=== PATIENT | male | born 1990 | race Caucasian/White ===

== ENCOUNTER 2017-06-01 18:34 | Emergency (ER) | payer MEDICAID ==
[~2017-06-01] VITALS: Ht 175.3 cm; Wt 63.6 kg
[~2017-06-01 18:34] MED LIST: CEPH-571 PO; HYDR-569 PO; INSU100V36 SQ; LANTUS SQ; ONDA4TAB12 PO
[2017-06-01 20:12] LABS: BASOPHILS % (AUTO) 0.1 % (0-1); EOSINOPHILS # (AUTO) 2.2 X10'3 (0-0.9); EOSINOPHILS % (AUTO) 9.8 % (0-6); HEMATOCRIT 38.2 % (42.0-52.0); HEMOGLOBIN 13.3 g/dl (14.0-17.9); LYMPHOCYTES # (AUTO) 2.1 X10'3 (1.1-4.8); LYMPHOCYTES % (AUTO) 9.6 % (21-51); MEAN CORPUSCULAR HEMOGLOBIN 31.3 PG (27.0-31.0); MEAN CORPUSCULAR HGB CONC 34.7 % (33.0-36.5); MEAN CORPUSCULAR VOLUME 90.1 FL (78-98); MONOCYTES # (AUTO) 0.7 X10'3 (0-0.9); NEUTROPHILS # (AUTO) 17.3 X10'3 (1.8-7.7); NEUTROPHILS % (AUTO) 77.5 % (42-75); PLATELET COUNT 320 X10'3 (140-440); RED BLOOD COUNT 4.25 X10'6 (4.70-6.10); RED CELL DISTRIBUTION WIDTH 12.8 % (11.5-14.5); WHITE BLOOD COUNT 22.3 X10'3 (4.5-11.0)
[2017-06-01 20:22] LABS: PARTIAL THROMBOPLASTIN TIME 29 SECONDS (22-32); PROTHROMBIN TIME 10.5 SECONDS (9.0-12.0)
[2017-06-01 20:27] LABS: ALANINE AMINOTRANSFERASE 25 U/L (12-78); ALBUMIN 2.8 G/DL (3.4-5.0); ALBUMIN/GLOBULIN RATIO 0.7 (1.1-1.5); ALKALINE PHOSPHATASE 142 IU/L (46-116); ANION GAP 4 (8-16); ASPARTATE AMINO TRANSFERASE 13 U/L (10-37); BILIRUBIN,TOTAL 0.3 MG/DL (0.1-1.0); BLOOD UREA NITROGEN 16 MG/DL (7-18); BUN/CREATININE RATIO 22.5 (5.4-32.0); CALCIUM 8.8 MG/DL (8.5-10.1); CHLORIDE 100 MMOL/L (99-107); CREATININE 0.71 MG/DL (0.60-1.10); POTASSIUM 4.4 MMOL/L (3.5-5.1); SODIUM 137 MMOL/L (135-145); TOTAL CARBON DIOXIDE 32.8 MMOL/L (24-32); eGFR > 90 ML/MIN
[2017-06-01 20:34] LABS: GLUCOSE 496 MG/DL (70-104)
[2017-06-01] MEDS ORDERED: normal saline 1000ML IV soln IVB ONE (20:45)
[2017-06-01] MEDS ORDERED: insulin regular, human 10 units/0.1 ml syringe SQ ONE (20:45)
[2017-06-01 20:51] LABS: CLARITY,URINE CLEAR (Clear); COLOR,URINE YELLOW (Yellow); GLUCOSE, URINE >=1000 mg/dl (Neg); KETONES,URINE NEGATIVE (Neg); LEUKOCYTE ESTERASE ,URINE NEGATIVE (Neg); NITRITES, URINE NEGATIVE (Neg); OCCULT BLOOD,URINE SMALL (Neg); PH,URINE 6.5 (4.8-8.0); PROTEIN,URINE NEGATIVE (Neg); UROBILINOGEN,URINE 0.2 E.U/dL (0.2-1.0)
[2017-06-01 20:52] LABS: UA COLLECTION TYPE VOIDED; URINE AMPHETAMINE SCREEN POSITIVE (Neg); URINE BARBITUATE SCREEN NEGATIVE (Neg); URINE BENZODIAZEPINES SCREEN NEGATIVE (Neg); URINE CANNABINOID SCREEN POSITIVE (Neg); URINE COCAINE SCREEN NEGATIVE (Neg); URINE METHADONE SCREEN NEGATIVE (Neg); URINE OPIATE SCREEN POSITIVE (Neg); URINE PHENCYCLIDINE SCREEN NEGATIVE (Neg)
[2017-06-01 20:53] LABS: WBC,URINE NONE SEEN /HPF (0-4)
[2017-06-01 20:54] LABS: BACTERIA,URINE 1+ /HPF (Neg); CAL OXALATE CRYSTALS FEW /HPF (NEGATIVE); SQUAMOUS EPITHELIAL CELL,UR FEW /LPF (FEW)
[2017-06-01 22:22] VITALS: BP 134/88
== END 2017-06-01 22:24 | disposition left against medical advice (07) ==
LOC: ER 18:34
DX: E11.65 Type 2 diabetes mellitus with hyperglycemia (principal); F11.10 Opioid abuse, uncomplicated; D72.829 Elevated white blood cell count, unspecified; R22.42 Localized swelling, mass and lump, left lower limb; M79.662 Pain in left lower leg; R00.0 Tachycardia, unspecified; E03.9 Hypothyroidism, unspecified; F15.10 Other stimulant abuse, uncomplicated; F17.200 Nicotine dependence, unspecified, uncomplicated; F14.10 Cocaine abuse, uncomplicated; Z88.2 Allergy status to sulfonamides; Z79.4 Long term (current) use of insulin; Z79.899 Other long term (current) drug therapy
CPT/HCPCS: 36415; 80053; 80305; 81001; 83605; 85025; 85610; 85730; 87040; 93971; 96360; 96372; 99285; J1815; J7030

== ENCOUNTER 2018-04-26 14:53 | Emergency (ER) | payer MEDICAID ==
[~2018-04-26] VITALS: Ht 175.3 cm; Wt 72.7 kg
[~2018-04-26 14:53] MED LIST changes: +HYDR-4383 PO; -HYDR-569 PO
--- NOTE | 2018-04-26 15:13 | NUR ---
PT STATES DM 1. BS TOO HIGH TOO READ
--- NOTE | 2018-04-26 15:16 | NUR ---
AWARE OF BS, PT PLACED IN ROOM
[2018-04-26 15:32] LABS: BASOPHILS # (AUTO) 0.1 X10'3 (0-0.2); EOSINOPHILS # (AUTO) 0.3 X10'3 (0-0.9); EOSINOPHILS % (AUTO) 3.3 % (0-6); HEMATOCRIT 40.6 % (42.0-52.0); HEMOGLOBIN 13.4 g/dl (14.0-17.9); LYMPHOCYTES # (AUTO) 2.4 X10'3 (1.1-4.8); LYMPHOCYTES % (AUTO) 29.3 % (21-51); MEAN CORPUSCULAR HEMOGLOBIN 31.3 PG (27.0-31.0); MEAN PLATELET VOLUME 10.3 FL (7.4-10.4); MONOCYTES # (AUTO) 0.7 X10'3 (0-0.9); MONOCYTES % (AUTO) 8.3 % (2-12); NEUTROPHILS # (AUTO) 4.7 X10'3 (1.8-7.7); NEUTROPHILS % (AUTO) 58.1 % (42-75); PLATELET COUNT 287 X10'3 (140-440); RED BLOOD COUNT 4.28 X10'6 (4.70-6.10); RED CELL DISTRIBUTION WIDTH 13.5 % (11.5-14.5); WHITE BLOOD COUNT 8.2 X10'3 (4.5-11.0)
[2018-04-26] MEDS ORDERED: normal saline 1000ML IV soln IVB ONE ×3 (15:45→17:40)
[2018-04-26 15:48] LABS: ALANINE AMINOTRANSFERASE 16 U/L (12-78); ALBUMIN 3.2 G/DL (3.4-5.0); ALBUMIN/GLOBULIN RATIO 0.8 (1.1-1.5); ALKALINE PHOSPHATASE 145 IU/L (46-116); ANION GAP 7 (8-16); ASPARTATE AMINO TRANSFERASE 11 U/L (10-37); BILIRUBIN,TOTAL 0.3 MG/DL (0.1-1.0); BLOOD UREA NITROGEN 16 MG/DL (7-18); BUN/CREATININE RATIO 15.8 (5.4-32.0); CALCIUM 9.1 MG/DL (8.5-10.1); CHLORIDE 96 MMOL/L (99-107); CREATININE 1.01 MG/DL (0.60-1.10); POTASSIUM 4.7 MMOL/L (3.5-5.1); SODIUM 130 MMOL/L (135-145); TOTAL CARBON DIOXIDE 27.1 MMOL/L (24-32); TOTAL PROTEIN 7.4 G/DL (6.4-8.2); eGFR 88 ML/MIN
[2018-04-26 15:51] LABS: GLUCOSE 660 MG/DL (70-104)
[2018-04-26] MEDS ORDERED: insulin regular, human 10 units/0.1 ml syringe IV ONE (15:55)
[2018-04-26 17:10] LABS: CLARITY,URINE CLEAR (Clear); COLOR,URINE STRAW (Yellow); GLUCOSE, URINE >=1000 mg/dl (Neg); KETONES,URINE 15 mg/dl (Neg); LEUKOCYTE ESTERASE ,URINE NEGATIVE (Neg); NITRITES, URINE NEGATIVE (Neg); OCCULT BLOOD,URINE TRACE-INTACT (Neg); PROTEIN,URINE NEGATIVE (Neg); UROBILINOGEN,URINE 0.2 E.U/dL (0.2-1.0)
[2018-04-26 17:11] LABS: UA COLLECTION TYPE CLN CATCH MIDSTREAM
[2018-04-26 17:17] LABS: BACTERIA,URINE NONE SEEN /HPF (Neg); MUCUS STRANDS NONE SEEN /LPF (Neg); RBC,URINE 0-2 /HPF (0-2); SQUAMOUS EPITHELIAL CELL,UR FEW /LPF (FEW); TRANSITIONAL EPI CELLS,URINE FEW /HPF; WBC,URINE 0-4 /HPF (0-4)
[2018-04-26 18:31] VITALS: BP 125/82
--- NOTE | 2018-04-26 20:02 | NUR ---
PATIENT LEFT HIS PHONE IN ROOM AFTER DISCHARGE. CALL PLACED TO ALL NUMBERS ON FILE, BOTH NUMBERS NON-WORKING.
== END 2018-04-26 19:33 | disposition home or self-care (01) ==
LOC: ER 14:54
DX: M79.671 Pain in right foot (principal); E10.65 Type 1 diabetes mellitus with hyperglycemia; E03.9 Hypothyroidism, unspecified; F15.90 Other stimulant use, unspecified, uncomplicated; F11.90 Opioid use, unspecified, uncomplicated; F14.90 Cocaine use, unspecified, uncomplicated; Z88.2 Allergy status to sulfonamides; Z59.0 Homelessness
CPT/HCPCS: 36415; 73630; 80053; 81001; 82948; 84550; 85025; 85651; 96374; 99284; J1815; J7030; 96361

== ENCOUNTER 2019-03-05 13:14 | Inpatient (IN) | payer MEDICAID ==
[2019-03-05] VITALS (9 sets, daily range): BP systolic 104–137; BP diastolic 62–90
[~2019-03-05] VITALS: Ht 175.3 cm; Wt 70.0 kg
[~2019-03-05 13:14] MED LIST changes: +ARIP5TAB49 PO; +BUPR1FIL3 SL; -CEPH-571 PO; +ESCI10TA61 PO; +GABA-530 PO; -HYDR-4383 PO; -ONDA4TAB12 PO; +TRAZ-251
[2019-03-05] MEDS ORDERED: normal saline 1000ML IV soln IVB ONE ×2 (13:40)
--- NOTE | 2019-03-05 13:55 | NUR ---
La Addendum: 03/05/19 at 1402 by [email or web address] Lab called with critical WBC 35.0. Dr Ge aware.
[2019-03-05 13:56] LABS: BASOPHILS # (AUTO) 0.1 X10'3 (0-0.2); BASOPHILS % (AUTO) 0.3 % (0-1); EOSINOPHILS % (AUTO) 0.1 % (0-6); HEMATOCRIT 42.8 % (42.0-52.0); HEMOGLOBIN 13.4 g/dl (14.0-17.9); LYMPHOCYTES # (AUTO) 1.7 X10'3 (1.1-4.8); LYMPHOCYTES % (AUTO) 4.8 % (21-51); MEAN CORPUSCULAR HEMOGLOBIN 31.2 PG (27.0-31.0); MEAN CORPUSCULAR HGB CONC 31.3 g/dL (33.0-36.5); MEAN CORPUSCULAR VOLUME 99.4 FL (78-98); MEAN PLATELET VOLUME 9.8 FL (7.4-10.4); MONOCYTES # (AUTO) 4.6 X10'3 (0-0.9); MONOCYTES % (AUTO) 13.1 % (2-12); NEUTROPHILS # (AUTO) 28.7 X10'3 (1.8-7.7); NEUTROPHILS % (AUTO) 81.7 % (42-75); PLATELET COUNT 432 X10'3 (140-440); RED CELL DISTRIBUTION WIDTH 13.6 % (11.5-14.5)
--- NOTE | 2019-03-05 14:00 | NUR ---
DR. DIAZ AT BEDSIDE.
[2019-03-05] MEDS ORDERED: vancomycin/NS 1 GM ADD-VANTAGE 250 ML X 1 DOSE IV ONE (14:05)
[2019-03-05 14:21] LABS: PLATELET ESTIMATE NORMAL; POLYCHROMASIA FEW; TOTAL CELLS COUNTED 100
[2019-03-05 14:22] LABS: PARTIAL THROMBOPLASTIN TIME 37 SECONDS (22-32)
[2019-03-05 14:26] LABS: ABG BASE EXCESS -25.8 mmol/L (-2.0-3.0); ABG HCO3 2.9 mmol/L (22.0-26.0); ABG OXYGEN SATURATION 97.8 % (95-98); ABG PCO2 (T) 11.1 mmHg (35.0-45.0); ABG PH (T) 7.033 (7.350-7.450); ABG PO2 (T) 141.4 mmHg (83-108); ALLEN'S TEST Positive; FCOHb 0.4 % (0.5-1.5); FMetHb 0.2 % (0.3-1.12); FO2Hb 97.2 % (94-100); TOTAL HEMOGLOBIN 12.6 G/dl (14.0-17.9)
[2019-03-05] MEDS: ketoconazole 2% cream 15gm TP SCH ×2 (14:30→19:39)
[2019-03-05 14:35] LABS: ALANINE AMINOTRANSFERASE 31 U/L (12-78); ALBUMIN/GLOBULIN RATIO 0.6 (1.1-1.5); ALKALINE PHOSPHATASE 170 IU/L (46-116); ASPARTATE AMINO TRANSFERASE 15 U/L (10-37); BILIRUBIN,TOTAL 0.5 MG/DL (0.1-1.0); BLOOD UREA NITROGEN 23 MG/DL (7-18); BUN/CREATININE RATIO 14.9 (5.4-32.0); CALCIUM 8.9 MG/DL (8.5-10.1); CHLORIDE 88 MMOL/L (99-107); CREATININE 1.54 MG/DL (0.60-1.10); POTASSIUM 4.5 MMOL/L (3.5-5.1); SODIUM 124 MMOL/L (135-145); TOTAL PROTEIN 8.3 G/DL (6.4-8.2); eGFR 54 ML/MIN
[2019-03-05 14:36] LABS: ANION GAP 31 (8-16)
[2019-03-05 14:37] LABS: GLUCOSE 590 MG/DL (70-104); TOTAL CARBON DIOXIDE < 5 MMOL/L (24-32)
[2019-03-05] MEDS ORDERED: CefTRIAXone/D5W-Rocephin 1gm 50 ML IV ONE (14:40)
[2019-03-05] MEDS ORDERED: insulin regular, human 10 units/0.1 ml syringe IV ONE (14:40)
[2019-03-05 14:46] LABS: CLARITY,URINE CLEAR (Clear); COLOR,URINE YELLOW (Yellow); GLUCOSE, URINE >=1000 mg/dl (Neg); KETONES,URINE >=80 mg/dl (Neg); LEUKOCYTE ESTERASE ,URINE NEGATIVE (Neg); NITRITES, URINE NEGATIVE (Neg); OCCULT BLOOD,URINE LARGE (Neg); PH,URINE 5.5 (4.8-8.0); PROTEIN,URINE 30 mg/dl (Neg); UROBILINOGEN,URINE 0.2 E.U/dL (0.2-1.0)
[2019-03-05 14:57] LABS: UA COLLECTION TYPE CLN CATCH MIDSTREAM
[2019-03-05 14:58] LABS: BACTERIA,URINE NONE SEEN /HPF (Neg); MUCUS STRANDS FEW /LPF (Neg); RBC,URINE 0-2 /HPF (0-2); SQUAMOUS EPITHELIAL CELL,UR FEW /LPF (FEW); WBC,URINE 0-4 /HPF (0-4)
[2019-03-05] MEDS ORDERED: iohexol 300mg/ml 100ml inj. ONE (15:06)
[2019-03-05] MEDS ORDERED: D5 IV PRN ×2 (15:48)
[2019-03-05] MEDS ORDERED: SODIUM BICARBONATE IV PRN ×2 (15:48)
[2019-03-05] MEDS: normal saline 1000ml 1,000 ML IV SCH ×2 (15:48→16:18)
[2019-03-05] MEDS ORDERED: sodium bicarbonate (8.4%) inj. 50 MEQ in dextrose 5% water 500ml 250 ML IV PRN (15:48)
[2019-03-05] MEDS ORDERED: POTASSIUM CL IV PRN ×2 (15:48)
[2019-03-05] MEDS ORDERED: sodium bicarbonate (8.4%) inj. 100 MEQ in dextrose 5% water 500ml 500 ML IV PRN (15:48)
[2019-03-05] MEDS ORDERED: normal saline 1000ml 1,000 ML IV SCH (15:48)
[2019-03-05] MEDS ORDERED: insulin regular, DKA only 100 UNIT in normal saline 100ml IV soln 100 ML IV SCH ×2 (15:48)
[2019-03-05] MEDS ORDERED: [UNRECOGNIZED DRUG - OTHER] IV PRN ×2 (15:48)
[2019-03-05] MEDS ORDERED: potassium CL 10mEq/100ml bag 100 ML IV PRN ×2 (15:50)
[2019-03-05] MEDS ORDERED: sodium phosphate inj. 30 MMOL in dextrose 5%-water 250 ML IV PRN (15:50)
[2019-03-05] MEDS: K, MAG and/or Phos replacement - Verify level? MC SCH (15:50)
[2019-03-05] MEDS ORDERED: potassium Cl 20 mEq SR tablet PO PRN ×4 (15:50)
[2019-03-05] MEDS ORDERED: insulin regular, human vial - multi-dose IV PRN (15:50)
[2019-03-05] MEDS ORDERED: sodium phosphate inj. 15 MMOL in dextrose 5%-water 150 ML IV PRN (15:50)
[2019-03-05 17:02] LABS: ALBUMIN 2.6 G/DL (3.4-5.0); ANION GAP 27 (8-16); BLOOD UREA NITROGEN 23 MG/DL (7-18); BUN/CREATININE RATIO 18.3 (5.4-32.0); CHLORIDE 97 MMOL/L (99-107); CREATININE 1.26 MG/DL (0.60-1.10); GLUCOSE 411 MG/DL (70-104); PHOSPHORUS 2.8 MG/DL (2.3-4.5); POTASSIUM 3.8 MMOL/L (3.5-5.1); SODIUM 130 MMOL/L (135-145); eGFR 68 ML/MIN
[2019-03-05 17:08] LABS: TOTAL CARBON DIOXIDE 5.9 MMOL/L (24-32)
--- NOTE | 2019-03-05 17:10 | NUR ---
C02 [address] DIAZ AND DELROY RN
[2019-03-05] MEDS: cephalexin 250mg capsule PO SCH ×2 (18:08→20:46)
[2019-03-05] MEDS ORDERED: insulin regular, human 100 UNIT in normal saline 100ml IV soln 99 ML IV SCH ×2 (18:40)
--- NOTE | 2019-03-05 18:40 | NUR ---
Patient in room ICU 2041. I have received report from LICHA Lynne and had the opportunity to ask questions and assume patient care.
--- NOTE | 2019-03-05 18:48 | NUR ---
Patient arrived to floor via ED and transferred self to hospital bed and placed on bedside monitor. Patient found to be in sinus tachycardia, MD aware, other vital signs stable. Patient alert and oriented asking for a warm blanket and water. 2 RN skin assessment performed with note on perianal wound; pictures in chart. Lungs clear to auscultation, s1s2 heart sounds, and distal pulses palpable. Patient with ketone smelling breath reporting he had been "working on his truck when he all of a sudden hurt on his butt." Patient thinks it could be "an in grown hair from shaving." Pt denies an new tattoos or needles in the sacral area. Patient placed on DKA protocol and Dr. Barone was called to clarify orders. Per Dr. Barone, D/C 2L normal saline bolus as patient already had 3L in ED. Also, MD only wants 8.4% of 50meq of 20meq KCL in D5-1/2 NS at 125 ml/h. When asked if he wanted to change fluids per DKA, he said to keep the bicarb drip as he ordered and to titrate insulin per the standard Insulin Drip Protocol. Okay for patient to eat per MD. Patient denies any nausea or ABD pain. MRSA nasal swab obtained and sent to lab.
[2019-03-05] MEDS: POTASSIUM CL IV PRN ×2 (18:59)
[2019-03-05] MEDS: SODIUM BICARBONATE IV PRN ×2 (18:59)
[2019-03-05] MEDS: D5 IV PRN ×2 (18:59)
[2019-03-05] MEDS: [UNRECOGNIZED DRUG - OTHER] IV PRN ×2 (18:59)
--- NOTE | 2019-03-05 19:00 | NUR ---
Problems reprioritized. Patient report given, questions answered & plan of care reviewed with Elizabeth HURT.
[2019-03-05] MEDS: K and/or MAG REPLACEMENT MC SCH (19:37)
[2019-03-05] MEDS: enoxaparin 30mg/0.3ml syringe SQ SCH (19:38)
[2019-03-05] MEDS: clindamycin 150mg capsule PO SCH (19:40)
[2019-03-05 20:59] LABS: ALBUMIN 2.7 G/DL (3.4-5.0); ANION GAP 17 (8-16); BLOOD UREA NITROGEN 21 MG/DL (7-18); BUN/CREATININE RATIO 18.6 (5.4-32.0); CALCIUM 8.4 MG/DL (8.5-10.1); CHLORIDE 99 MMOL/L (99-107); CREATININE 1.13 MG/DL (0.60-1.10); GLUCOSE 226 MG/DL (70-104); POTASSIUM 3.7 MMOL/L (3.5-5.1); SODIUM 131 MMOL/L (135-145); TOTAL CARBON DIOXIDE 15.1 MMOL/L (24-32); eGFR 77 ML/MIN
[2019-03-05 21:01] LABS: PHOSPHORUS 1.2 MG/DL (2.3-4.5)
[2019-03-05] MEDS: Neutra Phos packet PO PRN (21:07)
[2019-03-06] VITALS (23 sets, daily range): BP systolic 95–163; BP diastolic 48–88
[2019-03-06] MEDS: clindamycin 150mg capsule PO SCH ×4 (02:15→20:02)
[2019-03-06] MEDS: ondansetron/PF 4mg/2ml inj IV PRN ×2 (02:28→19:02)
[2019-03-06] MEDS ORDERED: dextrose 50%-water 50ml dispensing syringe IV ONE (03:30)
[2019-03-06 03:33] LABS: BASOPHILS # (AUTO) 0.1 X10'3 (0-0.2); BASOPHILS % (AUTO) 0.4 % (0-1); EOSINOPHILS % (AUTO) 0 % (0-6); HEMATOCRIT 34.8 % (42.0-52.0); HEMOGLOBIN 11.7 g/dl (14.0-17.9); LYMPHOCYTES # (AUTO) 0.5 X10'3 (1.1-4.8); MEAN CORPUSCULAR HEMOGLOBIN 31.3 PG (27.0-31.0); MEAN CORPUSCULAR HGB CONC 33.7 g/dL (33.0-36.5); MEAN CORPUSCULAR VOLUME 92.9 FL (78-98); MEAN PLATELET VOLUME 10.1 FL (7.4-10.4); MONOCYTES # (AUTO) 2.9 X10'3 (0-0.9); MONOCYTES % (AUTO) 10.9 % (2-12); NEUTROPHILS # (AUTO) 22.8 X10'3 (1.8-7.7); NEUTROPHILS % (AUTO) 86.7 % (42-75); PLATELET COUNT 317 X10'3 (140-440); RED BLOOD COUNT 3.74 X10'6 (4.70-6.10); RED CELL DISTRIBUTION WIDTH 12.7 % (11.5-14.5)
[2019-03-06 03:49] LABS: WHITE BLOOD COUNT 26.3 X10'3 (4.5-11.0)
[2019-03-06] MEDS: D5 IV PRN ×4 (03:56→16:16)
[2019-03-06] MEDS: POTASSIUM CL IV PRN ×4 (03:56→16:16)
[2019-03-06] MEDS: [UNRECOGNIZED DRUG - OTHER] IV PRN ×4 (03:56→16:16)
[2019-03-06] MEDS: SODIUM BICARBONATE IV PRN ×4 (03:56→16:16)
[2019-03-06 05:54] LABS: ALANINE AMINOTRANSFERASE 22 U/L (12-78); ALBUMIN 2.1 G/DL (3.4-5.0); ALBUMIN/GLOBULIN RATIO 0.5 (1.1-1.5); ALKALINE PHOSPHATASE 109 IU/L (46-116); ANION GAP 15 (8-16); ASPARTATE AMINO TRANSFERASE 19 U/L (10-37); BILIRUBIN,TOTAL 0.3 MG/DL (0.1-1.0); BLOOD UREA NITROGEN 15 MG/DL (7-18); CALCIUM 8.4 MG/DL (8.5-10.1); CHLORIDE 101 MMOL/L (99-107); CREATININE 0.75 MG/DL (0.60-1.10); GLUCOSE 118 MG/DL (70-104); MAGNESIUM 1.4 MG/DL (1.5-2.4); PHOSPHORUS 1.3 MG/DL (2.3-4.5); SODIUM 133 MMOL/L (135-145); TOTAL CARBON DIOXIDE 16.7 MMOL/L (24-32); TOTAL PROTEIN 6.5 G/DL (6.4-8.2); eGFR > 90 ML/MIN
[2019-03-06 05:58] LABS: POTASSIUM 2.9 MMOL/L (3.5-5.1)
[2019-03-06] MEDS: Neutra Phos packet PO PRN (06:05)
--- NOTE | 2019-03-06 06:51 | NUR ---
Problems reprioritized. Patient report given, questions answered & plan of care reviewed with LICHA Johnson.
--- NOTE | 2019-03-06 06:52 | NUR ---
Problems reprioritized. Patient report given, questions answered & plan of care reviewed with LICHA Gutierrez.
[2019-03-06 06:57] LABS: TOTAL CELLS COUNTED 100
[2019-03-06 06:58] LABS: PLATELET ESTIMATE NORMAL; POIKILOCYTOSIS 1+; TOXIC GRANULATION 1+; TOXIC VACUOLATION 2+
[2019-03-06] MEDS: K, MAG and/or Phos replacement - Verify level? MC SCH (07:37)
[2019-03-06] MEDS: K and/or MAG REPLACEMENT MC SCH ×2 (07:38→20:00)
[2019-03-06] MEDS: pantoprazole 40mg Tablet.DR PO SCH (07:51)
[2019-03-06] MEDS: cephalexin 250mg capsule PO SCH ×2 (07:51→13:30)
[2019-03-06] MEDS: enoxaparin 30mg/0.3ml syringe SQ SCH ×2 (07:52→20:03)
[2019-03-06] MEDS: insulin glargine (Lantus) pen - multi-dose SQ SCH ×2 (09:22→20:12)
[2019-03-06] MEDS: insulin Lispro (HumaLOG) vial - multi-dose SQ PRN ×3 (09:24→19:10)
[2019-03-06 09:56] LABS: ALANINE AMINOTRANSFERASE 23 U/L (12-78); ALBUMIN 2.1 G/DL (3.4-5.0); ALBUMIN/GLOBULIN RATIO 0.4 (1.1-1.5); ALKALINE PHOSPHATASE 109 IU/L (46-116); ANION GAP 11 (8-16); ASPARTATE AMINO TRANSFERASE 20 U/L (10-37); BILIRUBIN,TOTAL 0.2 MG/DL (0.1-1.0); BLOOD UREA NITROGEN 13 MG/DL (7-18); BUN/CREATININE RATIO 18.3 (5.4-32.0); CALCIUM 8.9 MG/DL (8.5-10.1); CHLORIDE 102 MMOL/L (99-107); CREATININE 0.71 MG/DL (0.60-1.10); GLUCOSE 118 MG/DL (70-104); POTASSIUM 3.1 MMOL/L (3.5-5.1); SODIUM 133 MMOL/L (135-145); TOTAL CARBON DIOXIDE 20.4 MMOL/L (24-32); TOTAL PROTEIN 6.8 G/DL (6.4-8.2); eGFR > 90 ML/MIN
[2019-03-06] MEDS ORDERED: magnesium Cl slow-release 64mg tablet PO PRN (10:35)
[2019-03-06] MEDS: gabapentin 100mg capsule PO SCH ×2 (11:13→20:02)
[2019-03-06] MEDS: potassium Cl 20 mEq SR tablet PO SCH ×3 (11:13→20:06)
[2019-03-06] MEDS: aripiprazole 5mg tablet PO SCH (11:13)
[2019-03-06] MEDS: buprenorphine/naloxone 8MG-2MG SUBlingual film SL SCH ×2 (11:14→20:12)
--- NOTE | 2019-03-06 12:30 | NUR ---
DM Consult: Pt admit w/ DKA hx T1DM non-compliant hx heroin, meth, and cocaine. Pt hx not taking insulin since had not been eating and refused MD ed on T1DM this admit per MD note. Prior A1C 10.7 05/2018; RD d/w RN for new A1C. Pt seen by RD for written/verbal DM ed w/ RD contact information provided. Pt passive but polite and was open to verbal reinforcement regarding taking insulin even if no PO, CDE course, and RD encouraged pt to contact dietitian's office if further questions. Pt reports throat is sore from N/V and meds and requests liquids today for lunch and dinner. Dietary notified; to receive soups, juice, and somali yogurt BIDLD today only. LBM 03/04. GLU 118 down from 590 on admit and receiving electrolyte replacement per protocol. Will continue to monitor. Rec: 1. continue carb controlled diet; liquids today per pt request 2. monitor for additional protein needs 3. bowel care as needed 4. wt per rx Addendum: 03/06/19 at [address] Amended: Links added.
[2019-03-06] MEDS: ketoconazole 2% cream 15gm TP SCH ×2 (14:54→20:02)
[2019-03-06] MEDS ORDERED: normal saline 1000ml 1,000 ML IV SCH (15:48)
[2019-03-06] MEDS: cephalexin 500mg capsule PO SCH ×2 (17:10→20:01)
--- NOTE | 2019-03-06 18:38 | NUR ---
Problems reprioritized. Patient report given, questions answered & plan of care reviewed with LICHA Reza.
--- NOTE | 2019-03-06 18:40 | NUR ---
Patient in room ICU 2041. I have received report from LICHA Gutierrez and had the opportunity to ask questions and assume patient care. Patient is resting comfortably in hospital bed, he is A&O x3 and BLAIR. I will continue to monitor.
[2019-03-06 19:39] LABS: PHOSPHORUS 1.4 MG/DL (2.3-4.5); POTASSIUM 3.8 MMOL/L (3.5-5.1)
[2019-03-06] MEDS ORDERED: buprenorphine/naloxone 8MG-2MG SUBlingual film SL SCH (20:00)
[2019-03-06] MEDS ORDERED: gabapentin 100mg capsule PO SCH (20:00)
[2019-03-06] MEDS ORDERED: insulin glargine (Lantus) pen - multi-dose SQ SCH (20:00)
[2019-03-06] MEDS ORDERED: potassium phosphate inj 30 MMOL in normal saline 500ml IV soln 490 ML IV SCH (20:00)
[2019-03-06] MEDS: sodium phosphate inj. 30 MMOL in dextrose 5%-water 250 ML IV SCH (20:01)
[2019-03-06] MEDS: lactobacillus rhamnosus 10,000 MMU CELLS/CAPSULE PO SCH (20:02)
[2019-03-06] MEDS: ESCITALOPRAM OXALATE 5 MG TABLET PO SCH (20:02)
[2019-03-06] MEDS: traZODone 50mg tablet PO SCH (20:06)
[2019-03-07] VITALS (24 sets, daily range): BP systolic 95–148; BP diastolic 52–93
[2019-03-07] MEDS: insulin Lispro (HumaLOG) vial - multi-dose SQ PRN ×2 (00:22→08:36)
[2019-03-07] MEDS: clindamycin 150mg capsule PO SCH ×2 (02:12→07:38)
[2019-03-07] MEDS: [UNRECOGNIZED DRUG - OTHER] IV PRN ×2 (04:05)
[2019-03-07] MEDS: SODIUM BICARBONATE IV PRN ×2 (04:05)
[2019-03-07] MEDS: POTASSIUM CL IV PRN ×2 (04:05)
[2019-03-07] MEDS: D5 IV PRN ×2 (04:05)
[2019-03-07 05:31] LABS: BASOPHILS % (AUTO) 0.2 % (0-1); EOSINOPHILS # (AUTO) 0.2 X10'3 (0-0.9); EOSINOPHILS % (AUTO) 0.6 % (0-6); HEMATOCRIT 32.6 % (42.0-52.0); LYMPHOCYTES # (AUTO) 0.9 X10'3 (1.1-4.8); LYMPHOCYTES % (AUTO) 3.4 % (21-51); MEAN CORPUSCULAR HGB CONC 33.7 g/dL (33.0-36.5); MONOCYTES # (AUTO) 1.5 X10'3 (0-0.9); MONOCYTES % (AUTO) 5.9 % (2-12); NEUTROPHILS # (AUTO) 22.7 X10'3 (1.8-7.7); NEUTROPHILS % (AUTO) 89.9 % (42-75); PLATELET COUNT 312 X10'3 (140-440); RED BLOOD COUNT 3.54 X10'6 (4.70-6.10); RED CELL DISTRIBUTION WIDTH 12.8 % (11.5-14.5)
[2019-03-07 05:37] LABS: ALANINE AMINOTRANSFERASE 20 U/L (12-78); ALBUMIN 1.9 G/DL (3.4-5.0); ALBUMIN/GLOBULIN RATIO 0.4 (1.1-1.5); ALKALINE PHOSPHATASE 121 IU/L (46-116); ANION GAP 6 (8-16); ASPARTATE AMINO TRANSFERASE 16 U/L (10-37); BILIRUBIN,TOTAL 0.3 MG/DL (0.1-1.0); BLOOD UREA NITROGEN 12 MG/DL (7-18); BUN/CREATININE RATIO 17.6 (5.4-32.0); CALCIUM 8.9 MG/DL (8.5-10.1); CHLORIDE 103 MMOL/L (99-107); CREATININE 0.68 MG/DL (0.60-1.10); GLUCOSE 238 MG/DL (70-104); MAGNESIUM 1.7 MG/DL (1.5-2.4); POTASSIUM 3.9 MMOL/L (3.5-5.1); SODIUM 134 MMOL/L (135-145); TOTAL CARBON DIOXIDE 24.6 MMOL/L (24-32); TOTAL PROTEIN 6.5 G/DL (6.4-8.2); eGFR > 90 ML/MIN
[2019-03-07 05:40] LABS: WHITE BLOOD COUNT 25.3 X10'3 (4.5-11.0)
[2019-03-07 06:56] LABS: PHOSPHORUS 1.1 MG/DL (2.3-4.5)
[2019-03-07 07:18] LABS: PLATELET ESTIMATE NORMAL; TOTAL CELLS COUNTED 100
[2019-03-07 07:19] LABS: TOXIC GRANULATION 1+
[2019-03-07] MEDS: gabapentin 100mg capsule PO SCH ×2 (07:37→20:33)
[2019-03-07] MEDS: lactobacillus rhamnosus 10,000 MMU CELLS/CAPSULE PO SCH ×2 (07:38→20:33)
[2019-03-07] MEDS: aripiprazole 5mg tablet PO SCH (07:38)
[2019-03-07] MEDS: cephalexin 500mg capsule PO SCH (07:38)
[2019-03-07] MEDS: pantoprazole 40mg Tablet.DR PO SCH (07:38)
[2019-03-07] MEDS: enoxaparin 30mg/0.3ml syringe SQ SCH ×2 (07:39→20:33)
[2019-03-07] MEDS ORDERED: aripiprazole 5mg tablet PO SCH (08:00)
[2019-03-07] MEDS: K and/or MAG REPLACEMENT MC SCH (08:00)
[2019-03-07] MEDS: K, MAG and/or Phos replacement - Verify level? MC SCH (08:00)
[2019-03-07] MEDS: insulin glargine (Lantus) pen - multi-dose SQ SCH ×2 (08:35→20:59)
[2019-03-07] MEDS ORDERED: ALUMINUM ACETATE TP SCH (09:00)
[2019-03-07] MEDS: sodium phosphate inj. 30 MMOL in dextrose 5%-water 250 ML IV SCH (09:04)
[2019-03-07] MEDS: ketoconazole 2% cream 15gm TP SCH ×2 (09:05→20:33)
[2019-03-07] MEDS: potassium Cl 20 mEq SR tablet PO SCH ×3 (09:05→20:33)
[2019-03-07] MEDS: acetaminophen 325mg tablet PO PRN (09:06)
[2019-03-07] MEDS: buprenorphine/naloxone 8MG-2MG SUBlingual film SL SCH ×2 (09:31→20:35)
[2019-03-07] MEDS: sodium chloride 0.45% 1,000 ML IV SCH ×2 (10:50→19:13)
[2019-03-07] MEDS ORDERED: sodium phosphate inj. 30 MMOL in dextrose 5%-water 250 ML IV PRN (10:54)
[2019-03-07] MEDS: piperacillin/tazo 3.375gm/50 ML IV SCH ×2 (12:31→20:33)
[2019-03-07] MEDS ORDERED: vancomycin/NS 1 GM ADD-VANTAGE 250 ML IV SCH (13:00)
[2019-03-07] MEDS ORDERED: [UNRECOGNIZED DRUG - OTHER] TP SCH (13:00)
[2019-03-07] MEDS ORDERED: CALCIUM ACETATE TP SCH (13:00)
[2019-03-07] MEDS: VANCOMYCIN 1gm/H2O 200ml PB 250 ML IV SCH ×2 (13:31→20:34)
[2019-03-07] MEDS: insulin Lispro (HumaLOG) vial - multi-dose SQ SCH ×2 (14:11→19:12)
[2019-03-07] MEDS ORDERED: vancomycin inj 500 MG in normal saline 100ml IV soln 100 ML IV ONE (15:00)
--- NOTE | 2019-03-07 18:15 | NUR ---
Patient in room ICU 2041. I have received report from LICHA Raya and had the opportunity to ask questions and assume patient care. Patient is sleeping comfortably on hospital bed, dinner just arrived and patient easily woke. He is A&O x3, BLAIR and is appropriate.
[2019-03-07] MEDS: traZODone 50mg tablet PO SCH (20:33)
[2019-03-07] MEDS: ESCITALOPRAM OXALATE 5 MG TABLET PO SCH (20:34)
[2019-03-08] VITALS (20 sets, daily range): BP systolic 113–153; BP diastolic 71–105
[2019-03-08] MEDS: sodium chloride 0.45% 1,000 ML IV SCH ×2 (02:20→05:11)
[2019-03-08] MEDS: piperacillin/tazo 3.375gm/50 ML IV SCH ×3 (04:11→21:12)
[2019-03-08] MEDS: VANCOMYCIN 1gm/H2O 200ml PB 200 ML IV SCH ×2 (05:11→14:09)
[2019-03-08 05:29] LABS: BASOPHILS # (AUTO) 0.1 X10'3 (0-0.2); HEMOGLOBIN 10.4 g/dl (14.0-17.9); LYMPHOCYTES # (AUTO) 1.4 X10'3 (1.1-4.8); LYMPHOCYTES % (AUTO) 6.3 % (21-51); MEAN CORPUSCULAR HEMOGLOBIN 31.2 PG (27.0-31.0); NEUTROPHILS % (AUTO) 87.5 % (42-75)
[2019-03-08 05:33] LABS: ALANINE AMINOTRANSFERASE 21 U/L (12-78); ALBUMIN 1.7 G/DL (3.4-5.0); ALBUMIN/GLOBULIN RATIO 0.4 (1.1-1.5); ALKALINE PHOSPHATASE 139 IU/L (46-116); ANION GAP 8 (8-16); ASPARTATE AMINO TRANSFERASE 18 U/L (10-37); BILIRUBIN,TOTAL 0.3 MG/DL (0.1-1.0); BLOOD UREA NITROGEN 8 MG/DL (7-18); BUN/CREATININE RATIO 13.8 (5.4-32.0); CALCIUM 8.6 MG/DL (8.5-10.1); CHLORIDE 104 MMOL/L (99-107); CREATININE 0.58 MG/DL (0.60-1.10); GLUCOSE 123 MG/DL (70-104); MAGNESIUM 1.8 MG/DL (1.5-2.4); POTASSIUM 3.7 MMOL/L (3.5-5.1); SODIUM 137 MMOL/L (135-145); TOTAL CARBON DIOXIDE 24.7 MMOL/L (24-32); TOTAL PROTEIN 6.3 G/DL (6.4-8.2); eGFR > 90 ML/MIN
[2019-03-08 05:34] LABS: BASOPHILS % (AUTO) 0.3 % (0-1); EOSINOPHILS # (AUTO) 0.3 X10'3 (0-0.9); EOSINOPHILS % (AUTO) 1.4 % (0-6); HEMATOCRIT 30.9 % (42.0-52.0); MEAN CORPUSCULAR HGB CONC 33.7 g/dL (33.0-36.5); MEAN CORPUSCULAR VOLUME 92.6 FL (78-98); MEAN PLATELET VOLUME 9.7 FL (7.4-10.4); MONOCYTES % (AUTO) 4.5 % (2-12); NEUTROPHILS # (AUTO) 19.9 X10'3 (1.8-7.7); PLATELET COUNT 307 X10'3 (140-440); RED BLOOD COUNT 3.34 X10'6 (4.70-6.10); RED CELL DISTRIBUTION WIDTH 12.9 % (11.5-14.5); WHITE BLOOD COUNT 22.8 X10'3 (4.5-11.0)
[2019-03-08 06:10] LABS: PHOSPHORUS 1.8 MG/DL (2.3-4.5)
[2019-03-08] MEDS: Neutra Phos packet PO PRN ×2 (07:49→12:48)
[2019-03-08] MEDS: enoxaparin 30mg/0.3ml syringe SQ SCH ×2 (07:49→21:13)
[2019-03-08] MEDS: aripiprazole 5mg tablet PO SCH (07:49)
[2019-03-08] MEDS: potassium Cl 20 mEq SR tablet PO SCH ×3 (07:49→21:14)
[2019-03-08] MEDS: buprenorphine/naloxone 8MG-2MG SUBlingual film SL SCH ×2 (07:49→21:13)
[2019-03-08] MEDS: gabapentin 100mg capsule PO SCH ×2 (07:50→21:13)
[2019-03-08] MEDS: lactobacillus rhamnosus 10,000 MMU CELLS/CAPSULE PO SCH ×2 (07:50→21:12)
[2019-03-08] MEDS: pantoprazole 40mg Tablet.DR PO SCH (07:50)
[2019-03-08] MEDS: ketoconazole 2% cream 15gm TP SCH ×2 (07:50→22:11)
[2019-03-08] MEDS: acetaminophen 325mg tablet PO PRN ×2 (07:59→17:37)
[2019-03-08] MEDS: K, MAG and/or Phos replacement - Verify level? MC SCH (08:30)
[2019-03-08 08:33] LABS: TOTAL CELLS COUNTED 100
[2019-03-08 08:34] LABS: PLATELET ESTIMATE NORMAL; POLYCHROMASIA 1+; TOXIC GRANULATION 1+; TOXIC VACUOLATION 2+
[2019-03-08] MEDS: insulin Lispro (HumaLOG) vial - multi-dose SQ SCH ×3 (08:50→18:42)
[2019-03-08] MEDS ORDERED: VANCOMYCIN LEVEL IV ONE (12:30)
[2019-03-08] MEDS: traZODone 50mg tablet PO SCH (21:13)
[2019-03-08] MEDS: ESCITALOPRAM OXALATE 5 MG TABLET PO SCH (21:14)
[2019-03-08] MEDS: VANCOmycin 1250MG/NS 250ml Bag 250 ML IV SCH (22:11)
[2019-03-08] MEDS: insulin glargine (Lantus) pen - multi-dose SQ SCH (22:14)
[2019-03-09] VITALS: BP 132/88
[2019-03-09] MEDS: VANCOmycin 1250MG/NS 250ml Bag 250 ML IV SCH ×3 (04:18→22:25)
[2019-03-09] MEDS: piperacillin/tazo 3.375gm/50 ML IV SCH ×3 (05:55→19:47)
[2019-03-09] MEDS: acetaminophen 325mg tablet PO PRN ×3 (05:56→23:02)
[2019-03-09 06:19] LABS: ALANINE AMINOTRANSFERASE 23 U/L (12-78); ALBUMIN 1.7 G/DL (3.4-5.0); ALBUMIN/GLOBULIN RATIO 0.4 (1.1-1.5); ALKALINE PHOSPHATASE 139 IU/L (46-116); ANION GAP 9 (8-16); ASPARTATE AMINO TRANSFERASE 23 U/L (10-37); BILIRUBIN,TOTAL 0.3 MG/DL (0.1-1.0); BLOOD UREA NITROGEN 7 MG/DL (7-18); BUN/CREATININE RATIO 11.7 (5.4-32.0); CALCIUM 8.4 MG/DL (8.5-10.1); CHLORIDE 101 MMOL/L (99-107); GLUCOSE 219 MG/DL (70-104); MAGNESIUM 1.6 MG/DL (1.5-2.4); POTASSIUM 4.1 MMOL/L (3.5-5.1); SODIUM 137 MMOL/L (135-145); TOTAL CARBON DIOXIDE 26.6 MMOL/L (24-32); TOTAL PROTEIN 6.5 G/DL (6.4-8.2); eGFR > 90 ML/MIN
--- NOTE | 2019-03-09 06:20 | NUR ---
Problems reprioritized. Patient report given, questions answered & plan of care reviewed with JENA. Addendum: 03/09/19 at 0621 by Paras Zapata RN Amended: Links added.
[2019-03-09 06:27] LABS: BASOPHILS % (AUTO) 0.4 % (0-1); EOSINOPHILS # (AUTO) 0.5 X10'3 (0-0.9); EOSINOPHILS % (AUTO) 3.3 % (0-6); HEMATOCRIT 34.8 % (42.0-52.0); HEMOGLOBIN 11.5 g/dl (14.0-17.9); LYMPHOCYTES # (AUTO) 1.4 X10'3 (1.1-4.8); LYMPHOCYTES % (AUTO) 10.2 % (21-51); MEAN CORPUSCULAR HEMOGLOBIN 30.8 PG (27.0-31.0); MEAN CORPUSCULAR HGB CONC 33.1 g/dL (33.0-36.5); MEAN PLATELET VOLUME 9.9 FL (7.4-10.4); MONOCYTES # (AUTO) 1.1 X10'3 (0-0.9); NEUTROPHILS # (AUTO) 10.6 X10'3 (1.8-7.7); NEUTROPHILS % (AUTO) 78.1 % (42-75); PLATELET COUNT 314 X10'3 (140-440); RED BLOOD COUNT 3.74 X10'6 (4.70-6.10); RED CELL DISTRIBUTION WIDTH 13.5 % (11.5-14.5); WHITE BLOOD COUNT 13.5 X10'3 (4.5-11.0)
[2019-03-09 07:15] VITALS: BP 148/99
[2019-03-09] MEDS: buprenorphine/naloxone 8MG-2MG SUBlingual film SL SCH ×2 (08:00→19:51)
[2019-03-09] MEDS: gabapentin 100mg capsule PO SCH ×2 (08:01→19:50)
[2019-03-09] MEDS: pantoprazole 40mg Tablet.DR PO SCH (08:01)
[2019-03-09] MEDS: lactobacillus rhamnosus 10,000 MMU CELLS/CAPSULE PO SCH ×2 (08:01→19:50)
[2019-03-09] MEDS: aripiprazole 5mg tablet PO SCH (08:01)
[2019-03-09] MEDS: enoxaparin 30mg/0.3ml syringe SQ SCH ×2 (08:02→19:52)
[2019-03-09] MEDS: potassium Cl 20 mEq SR tablet PO SCH ×3 (08:02→22:21)
[2019-03-09] MEDS: K, MAG and/or Phos replacement - Verify level? MC SCH (08:03)
[2019-03-09] MEDS: ketoconazole 2% cream 15gm TP SCH ×2 (08:06→19:52)
[2019-03-09] MEDS: insulin Lispro (HumaLOG) vial - multi-dose SQ SCH ×4 (08:20→22:56)
[2019-03-09 11:00] VITALS: BP 133/96
[2019-03-09 12:32] VITALS: BP 133/96
--- NOTE | 2019-03-09 13:19 | NUR ---
Reassessment: DKA resolved per MD notes. Pt previously averaging 50-75% PO intake not meeting needs however up to 100% PO intake meeting nutrient needs. Pt seen at bedside endorses a good appetite and states he is getting full from meals. Sepsis score 2 per physical assessment. Pt provided with written and verbal protein education and RD contact information. Pt denies additional protein at this time but requests diet coke with dinners, d/w dietary. Pt reports difficulty chewing d/t missing teeth however denies need for texture modification at this time. LBM 03/04 however pt reports LBM today. No nutrition intervention warranted at this time. Will continue to follow. Rec: 1. continue carb controlled diet 2. monitor for additional protein needs 3. bowel care as needed 4. wt per rx Addendum: 03/09/19 at [address] Amended: Links added.
--- NOTE | 2019-03-09 15:48 | NUR ---
Patient to MRI, Tripp put on hold, patient JJ.
--- NOTE | 2019-03-09 18:15 | NUR ---
Problems reprioritized. Patient report given, questions answered & plan of care reviewed with Pat RN.
[2019-03-09] MEDS ORDERED: gadobutrol 10mmol/10ml inj. IV ONE ×2 (18:44)
[2019-03-09 19:30] VITALS: BP 153/99
[2019-03-09] MEDS ORDERED: VANCOMYCIN LEVEL IV ONE (20:30)
[2019-03-09] MEDS: ESCITALOPRAM OXALATE 5 MG TABLET PO SCH (22:21)
[2019-03-09] MEDS: traZODone 50mg tablet PO SCH (22:21)
[2019-03-09] MEDS: insulin glargine (Lantus) pen - multi-dose SQ SCH (22:54)
[2019-03-09 23:30] VITALS: BP 133/96
[2019-03-10] MEDS: piperacillin/tazo 3.375gm/50 ML IV SCH ×3 (04:14→23:10)
[2019-03-10] MEDS ORDERED: VANCOMYCIN LEVEL IV ONE (04:30)
[2019-03-10 05:11] LABS: BASOPHILS # (AUTO) 0.1 X10'3 (0-0.2); BASOPHILS % (AUTO) 0.7 % (0-1); EOSINOPHILS # (AUTO) 0.6 X10'3 (0-0.9); EOSINOPHILS % (AUTO) 4.8 % (0-6); HEMATOCRIT 37.8 % (42.0-52.0); HEMOGLOBIN 12.5 g/dl (14.0-17.9); LYMPHOCYTES # (AUTO) 2.5 X10'3 (1.1-4.8); LYMPHOCYTES % (AUTO) 19.7 % (21-51); MEAN CORPUSCULAR HEMOGLOBIN 30.8 PG (27.0-31.0); MEAN CORPUSCULAR HGB CONC 33.1 g/dL (33.0-36.5); MEAN CORPUSCULAR VOLUME 93.1 FL (78-98); MEAN PLATELET VOLUME 8.4 FL (7.4-10.4); MONOCYTES # (AUTO) 1.6 X10'3 (0-0.9); MONOCYTES % (AUTO) 12.9 % (2-12); NEUTROPHILS # (AUTO) 7.8 X10'3 (1.8-7.7); NEUTROPHILS % (AUTO) 61.9 % (42-75); PLATELET COUNT 544 X10'3 (140-440); RED BLOOD COUNT 4.06 X10'6 (4.70-6.10); RED CELL DISTRIBUTION WIDTH 13.4 % (11.5-14.5); WHITE BLOOD COUNT 12.6 X10'3 (4.5-11.0)
[2019-03-10] MEDS: acetaminophen 325mg tablet PO PRN (05:13)
[2019-03-10] MEDS: VANCOmycin 1250MG/NS 250ml Bag 250 ML IV SCH ×3 (05:14→21:41)
[2019-03-10 05:22] LABS: ALANINE AMINOTRANSFERASE 25 U/L (12-78); ALBUMIN 2.1 G/DL (3.4-5.0); ALBUMIN/GLOBULIN RATIO 0.4 (1.1-1.5); ALKALINE PHOSPHATASE 153 IU/L (46-116); ANION GAP 6 (8-16); ASPARTATE AMINO TRANSFERASE 21 U/L (10-37); BILIRUBIN,TOTAL 0.2 MG/DL (0.1-1.0); BLOOD UREA NITROGEN 7 MG/DL (7-18); CALCIUM 9.1 MG/DL (8.5-10.1); CHLORIDE 98 MMOL/L (99-107); GLUCOSE 263 MG/DL (70-104); MAGNESIUM 1.9 MG/DL (1.5-2.4); POTASSIUM 3.8 MMOL/L (3.5-5.1); SODIUM 138 MMOL/L (135-145); TOTAL CARBON DIOXIDE 34.4 MMOL/L (24-32); TOTAL PROTEIN 7.8 G/DL (6.4-8.2); VANCOMYCIN,TROUGH 15.8 UG/ML (6.0-14.0); eGFR > 90 ML/MIN
[2019-03-10 06:52] VITALS: BP 144/98
[2019-03-10] MEDS: pantoprazole 40mg Tablet.DR PO SCH (07:47)
[2019-03-10] MEDS: buprenorphine/naloxone 8MG-2MG SUBlingual film SL SCH ×2 (07:47→20:53)
[2019-03-10] MEDS: gabapentin 100mg capsule PO SCH ×2 (07:47→20:52)
[2019-03-10] MEDS: aripiprazole 5mg tablet PO SCH (07:47)
[2019-03-10] MEDS: lactobacillus rhamnosus 10,000 MMU CELLS/CAPSULE PO SCH ×2 (07:47→20:51)
[2019-03-10] MEDS: potassium Cl 20 mEq SR tablet PO SCH ×3 (07:47→20:51)
[2019-03-10] MEDS: ketoconazole 2% cream 15gm TP SCH ×2 (07:48→21:41)
[2019-03-10] MEDS: enoxaparin 30mg/0.3ml syringe SQ SCH ×2 (07:48→20:00)
[2019-03-10] MEDS: K, MAG and/or Phos replacement - Verify level? MC SCH (07:49)
[2019-03-10] MEDS: insulin Lispro (HumaLOG) vial - multi-dose SQ SCH ×3 (08:09→21:15)
--- NOTE | 2019-03-10 09:28 | NUR ---
PAGER ID: [phone] MESSAGE: [phone] [facility] is trying to get into contact with you and would like you to call him Re: a possible abscess finding. Soniya [phone]
[2019-03-10 10:57] VITALS: BP 129/85
[2019-03-10] MEDS: normal saline 1000ml 1,000 ML IV SCH ×2 (11:47→21:30)
--- NOTE | 2019-03-10 12:40 | NUR ---
PAGER ID: [phone] MESSAGE: [phone] Elvia Pacheco How about Tordol for pain, he is on suboxone. Soniya [phone]
--- NOTE | 2019-03-10 12:58 | NUR ---
NPO after lunch ordered by Dr. Preston
[2019-03-10] MEDS: ketorolac tromethamine 15mg/ml inj. IV PRN ×2 (13:07→20:55)
[2019-03-10 18:00] VITALS: BP 125/88
--- NOTE | 2019-03-10 18:32 | NUR ---
Problems reprioritized. Patient report given, questions answered & plan of care reviewed with Joseph HURT.
[2019-03-10] MEDS: diatr meglu/diatrizoate 30ml oral sol.-(3 dose) bottle PO SCH (20:49)
[2019-03-10] MEDS: ESCITALOPRAM OXALATE 5 MG TABLET PO SCH (20:50)
[2019-03-10] MEDS: traZODone 50mg tablet PO SCH (20:51)
[2019-03-10] MEDS: insulin glargine (Lantus) pen - multi-dose SQ SCH (21:12)
[2019-03-11] VITALS: BP 125/88
[2019-03-11] MEDS: VANCOmycin 1250MG/NS 250ml Bag 250 ML IV SCH ×3 (03:12→21:15)
[2019-03-11 04:10] LABS: BASOPHILS # (AUTO) 0.1 X10'3 (0-0.2); BASOPHILS % (AUTO) 0.8 % (0-1); EOSINOPHILS # (AUTO) 0.6 X10'3 (0-0.9); EOSINOPHILS % (AUTO) 6.7 % (0-6); HEMOGLOBIN 11.8 g/dl (14.0-17.9); LYMPHOCYTES # (AUTO) 2.2 X10'3 (1.1-4.8); LYMPHOCYTES % (AUTO) 23.2 % (21-51); MEAN CORPUSCULAR HEMOGLOBIN 31.5 PG (27.0-31.0); MEAN CORPUSCULAR HGB CONC 33.6 g/dL (33.0-36.5); MEAN CORPUSCULAR VOLUME 93.9 FL (78-98); MEAN PLATELET VOLUME 8.2 FL (7.4-10.4); MONOCYTES # (AUTO) 1.2 X10'3 (0-0.9); NEUTROPHILS # (AUTO) 5.3 X10'3 (1.8-7.7); NEUTROPHILS % (AUTO) 56.3 % (42-75); PLATELET COUNT 514 X10'3 (140-440); RED BLOOD COUNT 3.73 X10'6 (4.70-6.10); RED CELL DISTRIBUTION WIDTH 13.3 % (11.5-14.5); WHITE BLOOD COUNT 9.5 X10'3 (4.5-11.0)
[2019-03-11 04:23] LABS: ALANINE AMINOTRANSFERASE 21 U/L (12-78); ALBUMIN 1.9 G/DL (3.4-5.0); ALBUMIN/GLOBULIN RATIO 0.4 (1.1-1.5); ALKALINE PHOSPHATASE 127 IU/L (46-116); ANION GAP 2 (8-16); ASPARTATE AMINO TRANSFERASE 20 U/L (10-37); BILIRUBIN,TOTAL 0.2 MG/DL (0.1-1.0); BLOOD UREA NITROGEN 10 MG/DL (7-18); BUN/CREATININE RATIO 13.7 (5.4-32.0); CALCIUM 8.8 MG/DL (8.5-10.1); CHLORIDE 102 MMOL/L (99-107); CREATININE 0.73 MG/DL (0.60-1.10); GLUCOSE 266 MG/DL (70-104); MAGNESIUM 1.9 MG/DL (1.5-2.4); POTASSIUM 4.7 MMOL/L (3.5-5.1); SODIUM 139 MMOL/L (135-145); TOTAL CARBON DIOXIDE 34.6 MMOL/L (24-32); TOTAL PROTEIN 6.8 G/DL (6.4-8.2); eGFR > 90 ML/MIN
[2019-03-11] MEDS: piperacillin/tazo 3.375gm/50 ML IV SCH ×3 (05:44→23:15)
[2019-03-11] MEDS: ketorolac tromethamine 15mg/ml inj. IV PRN ×3 (05:52→19:39)
--- NOTE | 2019-03-11 06:30 | NUR ---
Problems reprioritized. Patient report given, questions answered & plan of care reviewed with LICHA Saha.
[2019-03-11] MEDS: enoxaparin 30mg/0.3ml syringe SQ SCH ×2 (06:33→19:37)
[2019-03-11 07:00] VITALS: BP 145/99
[2019-03-11 07:00] LABS: PLATELET ESTIMATE INCREASED; POLYCHROMASIA 1+; ROULEAUX 1+; TOTAL CELLS COUNTED 100; TOXIC GRANULATION 3+
[2019-03-11] MEDS: K, MAG and/or Phos replacement - Verify level? MC SCH (07:05)
[2019-03-11] MEDS: lactobacillus rhamnosus 10,000 MMU CELLS/CAPSULE PO SCH ×2 (07:13→19:35)
[2019-03-11] MEDS: diatr meglu/diatrizoate 30ml oral sol.-(3 dose) bottle PO SCH ×2 (07:13→21:00)
[2019-03-11] MEDS: aripiprazole 5mg tablet PO SCH (07:13)
[2019-03-11] MEDS: buprenorphine/naloxone 8MG-2MG SUBlingual film SL SCH ×2 (07:13→19:36)
[2019-03-11] MEDS: ketoconazole 2% cream 15gm TP SCH ×2 (07:13→20:33)
[2019-03-11] MEDS: potassium Cl 20 mEq SR tablet PO SCH ×3 (07:13→21:16)
[2019-03-11] MEDS: pantoprazole 40mg Tablet.DR PO SCH (07:13)
[2019-03-11] MEDS: gabapentin 100mg capsule PO SCH ×2 (07:13→19:35)
[2019-03-11] MEDS ORDERED: iohexol 300mg/ml 100ml inj. ONE (07:20)
[2019-03-11] MEDS ORDERED: diatrozoate meglu/diatrozoate sod (37% iodine) 120ML oral solution ONE (07:20)
[2019-03-11] MEDS: normal saline 1000ml 1,000 ML IV SCH ×2 (07:30→12:47)
[2019-03-11 10:21] LABS: PARTIAL THROMBOPLASTIN TIME 27 SECONDS (22-32)
[2019-03-11 10:31] LABS: ABG BASE EXCESS 7.5 mmol/L (-2.0-3.0); ABG HCO3 32.1 mmol/L (22.0-26.0); ABG OXYGEN SATURATION 96.7 % (95-98); ABG PCO2 (T) 45.2 mmHg (35.0-45.0); ABG PH (T) 7.469 (7.350-7.450); ABG PO2 (T) 87.5 mmHg (83-108); ALLEN'S TEST POSITIVE; FCOHb 0.3 % (0.5-1.5); FMetHb 0.3 % (0.3-1.12); FO2Hb 96.1 % (94-100); TOTAL HEMOGLOBIN 11.8 G/dl (14.0-17.9)
[2019-03-11 12:00] VITALS: BP 143/97
--- NOTE | 2019-03-11 13:45 | NUR ---
Reassessment: Pt previously NPO for CT of pelvis for possible abscess. CHO controlled diet has since been resumed and pt with steady 75-100% PO intake meeting nutrient needs. Pt has RD contact information and has been encouraged to reach out to RD team if he has any food preferences. LBM 03/10. No nutrition intervention warranted at this time. Will continue to follow. Rec: 1. continue carb controlled diet 2. monitor for additional protein needs 3. bowel care as needed 4. wt per rx Addendum: 03/11/19 at [address] Amended: Links added.
[2019-03-11] MEDS: insulin Lispro (HumaLOG) vial - multi-dose SQ SCH ×3 (13:56→21:21)
--- NOTE | 2019-03-11 18:57 | NUR ---
Problems reprioritized. Patient report given, questions answered & plan of care reviewed with KATELYNN HURT.
[2019-03-11 19:00] VITALS: BP 142/96
[2019-03-11] MEDS: ESCITALOPRAM OXALATE 5 MG TABLET PO SCH (21:16)
[2019-03-11] MEDS: traZODone 50mg tablet PO SCH (21:16)
[2019-03-11] MEDS: insulin glargine (Lantus) pen - multi-dose SQ SCH (21:20)
[2019-03-12] VITALS: BP 131/87
[2019-03-12] MEDS: normal saline 1000ml 1,000 ML IV SCH (00:58)
[2019-03-12] MEDS: VANCOmycin 1250MG/NS 250ml Bag 250 ML IV SCH (04:46)
[2019-03-12] MEDS: ketorolac tromethamine 15mg/ml inj. IV PRN (04:55)
[2019-03-12 06:13] LABS: BASOPHILS # (AUTO) 0.1 X10'3 (0-0.2); BASOPHILS % (AUTO) 0.8 % (0-1); EOSINOPHILS # (AUTO) 0.8 X10'3 (0-0.9); EOSINOPHILS % (AUTO) 7.2 % (0-6); HEMOGLOBIN 11.3 g/dl (14.0-17.9); LYMPHOCYTES # (AUTO) 2.1 X10'3 (1.1-4.8); LYMPHOCYTES % (AUTO) 19.1 % (21-51); MEAN CORPUSCULAR HGB CONC 34.1 g/dL (33.0-36.5); MEAN CORPUSCULAR VOLUME 93.8 FL (78-98); MEAN PLATELET VOLUME 8.2 FL (7.4-10.4); MONOCYTES # (AUTO) 1.5 X10'3 (0-0.9); MONOCYTES % (AUTO) 13.7 % (2-12); NEUTROPHILS # (AUTO) 6.3 X10'3 (1.8-7.7); NEUTROPHILS % (AUTO) 59.2 % (42-75); PLATELET COUNT 515 X10'3 (140-440); RED BLOOD COUNT 3.52 X10'6 (4.70-6.10); RED CELL DISTRIBUTION WIDTH 13.4 % (11.5-14.5); WHITE BLOOD COUNT 10.7 X10'3 (4.5-11.0)
--- NOTE | 2019-03-12 06:34 | NUR ---
Problems reprioritized. Patient report given, questions answered & plan of care reviewed with Larissa HURT. Addendum: 03/12/19 at 0634 by Lashawn Valencia RN Amended: Links added.
[2019-03-12 06:51] LABS: ALANINE AMINOTRANSFERASE 25 U/L (12-78); ALBUMIN 1.9 G/DL (3.4-5.0); ALBUMIN/GLOBULIN RATIO 0.4 (1.1-1.5); ALKALINE PHOSPHATASE 119 IU/L (46-116); ANION GAP 2 (8-16); ASPARTATE AMINO TRANSFERASE 26 U/L (10-37); BILIRUBIN,TOTAL 0.2 MG/DL (0.1-1.0); BLOOD UREA NITROGEN 10 MG/DL (7-18); BUN/CREATININE RATIO 13.7 (5.4-32.0); CALCIUM 8.3 MG/DL (8.5-10.1); CHLORIDE 101 MMOL/L (99-107); CREATININE 0.73 MG/DL (0.60-1.10); GLUCOSE 276 MG/DL (70-104); MAGNESIUM 1.8 MG/DL (1.5-2.4); POTASSIUM 4.6 MMOL/L (3.5-5.1); SODIUM 138 MMOL/L (135-145); TOTAL CARBON DIOXIDE 34.8 MMOL/L (24-32); TOTAL PROTEIN 6.9 G/DL (6.4-8.2); eGFR > 90 ML/MIN
[2019-03-12 07:07] LABS: PLATELET ESTIMATE INCREASED; TOTAL CELLS COUNTED 100
[2019-03-12 07:08] LABS: POLYCHROMASIA FEW; TOXIC GRANULATION 2+
[2019-03-12] MEDS: piperacillin/tazo 3.375gm/50 ML IV SCH (07:13)
[2019-03-12] MEDS: gabapentin 100mg capsule PO SCH (07:14)
[2019-03-12] MEDS: pantoprazole 40mg Tablet.DR PO SCH (07:14)
[2019-03-12] MEDS: aripiprazole 5mg tablet PO SCH (07:14)
[2019-03-12] MEDS: potassium Cl 20 mEq SR tablet PO SCH (07:14)
[2019-03-12] MEDS: lactobacillus rhamnosus 10,000 MMU CELLS/CAPSULE PO SCH (07:14)
[2019-03-12] MEDS: buprenorphine/naloxone 8MG-2MG SUBlingual film SL SCH (07:15)
[2019-03-12] MEDS: enoxaparin 30mg/0.3ml syringe SQ SCH (07:15)
[2019-03-12] MEDS: K, MAG and/or Phos replacement - Verify level? MC SCH (07:16)
[2019-03-12] MEDS: ketoconazole 2% cream 15gm TP SCH (07:17)
[2019-03-12 07:45] VITALS: BP 152/100
[2019-03-12] MEDS ORDERED: lisinopril 10 MG tablet PO ONE (08:35)
[2019-03-12] MEDS: insulin Lispro (HumaLOG) vial - multi-dose SQ SCH (09:24)
[2019-03-12 09:25] VITALS: BP_SYST 152
[2019-03-12] MEDS ORDERED: KETO10TA2 PO (10:52)
[2019-03-12] MEDS ORDERED: LISI-604 PO (10:53)
[2019-03-12] MEDS ORDERED: METR-159 PO (10:53)
--- NOTE | 2019-03-12 11:45 | NUR ---
Patient discharged home into private vehicle. Patient IV removed, no tele. Patient medications were called into [facility] on [address]. Patient verbalized understanding of discharge orders. Patient alert, oriented, and appropriate for discharge. Escorted down by member of the staff. Patient will follow up with primary care provider in one week.
[2019-03-12] MEDS ORDERED: LEVO500T2 PO (17:03)
--- NOTE | 2019-03-12 17:44 | NUR ---
Patient Moncho called into [facility] on [address]. Patient has been contacted and states will fill it.
== END 2019-03-12 11:45 | disposition home or self-care (01) | DRG 420 ==
LOC: ER 13:14 → ED HOLD 15:55 → EDBEDREQ 16:39 → ICU 2S 17:17 → SUR 3N 03-08 18:56
PROVIDERS: ADMIT Internal Medicine Critical Care Medicine; ATTEND Internal Medicine
PROC: BW2G1ZZ Computerized Tomography (CT Scan) of Pelvic Region using Low Osmolar Contrast (ICD-10-PCS; principal; 2019-03-11)
DX: E10.10 Type 1 diabetes mellitus with ketoacidosis without coma (principal); L03.317 Cellulitis of buttock; E03.9 Hypothyroidism, unspecified; E86.0 Dehydration; F11.10 Opioid abuse, uncomplicated; F14.10 Cocaine abuse, uncomplicated; M60.852 Other myositis, left thigh; F15.10 Other stimulant abuse, uncomplicated; F32.9 Major depressive disorder, single episode, unspecified; F41.9 Anxiety disorder, unspecified; G89.4 Chronic pain syndrome; M25.552 Pain in left hip; R03.0 Elevated blood-pressure reading, without diagnosis of hypertension; R21 Rash and other nonspecific skin eruption; Z79.4 Long term (current) use of insulin; Z88.2 Allergy status to sulfonamides; Z91.19 Patient's noncompliance with other medical treatment and regimen
CPT/HCPCS: 36415; 36600; 71045; 72193; 72197; 80048; 80053; 80202; 81001; 82803; 82948; 83036; 83605; 83735; 84100; 84132; 84145; 85018; 85025; 85610; 85730; 86706; 86803; 87040; 87081; A9585; G0378; J0696; J1650; J1815; J1885; J2405; J2543; J3370; J7030; J7040; J7060; Q9963; Q9967

== ENCOUNTER 2019-03-31 11:27 | Emergency (ER) | payer MEDICAID ==
[~2019-03-31 11:27] MED LIST changes: +KETO10TA2 PO; +LEVO500T2 PO; +LISI-604 PO
== END 2019-03-31 11:56 | disposition left against medical advice (07) ==
LOC: ER 11:27
DX: F11.23 Opioid dependence with withdrawal (principal); Z53.21 Procedure and treatment not carried out due to patient leaving prior to being seen by health care provider

== ENCOUNTER 2019-10-19 07:35 | Emergency (ER) | payer MEDICAID ==
[~2019-10-19] VITALS: Ht 175.3 cm; Wt 72.7 kg
[~2019-10-19 07:35] MED LIST changes: -LEVO500T2 PO
[2019-10-19] MEDS ORDERED: piperacillin/tazo 3.375gm/50ml 50 ML IV ONE (09:10)
[2019-10-19 09:45] LABS: BASOPHILS # (AUTO) 0.1 X10'3 (0-0.2); BASOPHILS % (AUTO) 0.7 % (0-1); EOSINOPHILS # (AUTO) 0.5 X10'3 (0-0.9); EOSINOPHILS % (AUTO) 4.2 % (0-6); HEMATOCRIT 38.2 % (42.0-52.0); HEMOGLOBIN 12.7 g/dl (14.0-17.9); LYMPHOCYTES # (AUTO) 1.8 X10'3 (1.1-4.8); LYMPHOCYTES % (AUTO) 14.8 % (21-51); MEAN CORPUSCULAR HEMOGLOBIN 30.5 PG (27.0-31.0); MEAN CORPUSCULAR HGB CONC 33.3 g/dL (33.0-36.5); MEAN CORPUSCULAR VOLUME 91.7 FL (78-98); MEAN PLATELET VOLUME 9.4 FL (7.4-10.4); MONOCYTES # (AUTO) 1.1 X10'3 (0-0.9); MONOCYTES % (AUTO) 8.8 % (2-12); NEUTROPHILS # (AUTO) 8.7 X10'3 (1.8-7.7); NEUTROPHILS % (AUTO) 71.5 % (42-75); PLATELET COUNT 333 X10'3 (140-440); RED BLOOD COUNT 4.16 X10'6 (4.70-6.10); RED CELL DISTRIBUTION WIDTH 12.5 % (11.5-14.5); WHITE BLOOD COUNT 12.2 X10'3 (4.5-11.0)
[2019-10-19 10:00] LABS: ALANINE AMINOTRANSFERASE 42 U/L (12-78); ALBUMIN 3.2 G/DL (3.4-5.0); ALBUMIN/GLOBULIN RATIO 0.7 (1.1-1.5); ALKALINE PHOSPHATASE 104 IU/L (46-116); ANION GAP 5 (8-16); ASPARTATE AMINO TRANSFERASE 37 U/L (10-37); BILIRUBIN,TOTAL 0.2 MG/DL (0.1-1.0); BLOOD UREA NITROGEN 13 MG/DL (7-18); BUN/CREATININE RATIO 19.7 (5.4-32.0); CALCIUM 8.9 MG/DL (8.5-10.1); CHLORIDE 104 MMOL/L (99-107); CREATININE 0.66 MG/DL (0.60-1.10); GLUCOSE 82 MG/DL (70-104); POTASSIUM 3.9 MMOL/L (3.5-5.1); SODIUM 138 MMOL/L (135-145); TOTAL PROTEIN 7.5 G/DL (6.4-8.2); eGFR > 90 ML/MIN
--- NOTE | 2019-10-19 10:47 | NUR ---
pt c/o of having low bs, bs was checked and was 36. 25mls of d50 were administered, will recheck bs after 15 minutes
--- NOTE | 2019-10-19 11:21 | NUR ---
PT AMBULATING INDEPENDENTLY TO [facility].
[2019-10-19] MEDS ORDERED: CLIN-97 PO (11:29)
[2019-10-19 11:43] VITALS: BP 126/91
== END 2019-10-19 11:45 | disposition home or self-care (01) ==
LOC: ER 07:36
DX: S90.412A Abrasion, left great toe, initial encounter (principal); L03.116 Cellulitis of left lower limb; E10.9 Type 1 diabetes mellitus without complications; E03.9 Hypothyroidism, unspecified; F32.9 Major depressive disorder, single episode, unspecified; F17.200 Nicotine dependence, unspecified, uncomplicated; Z98.890 Other specified postprocedural states; Z88.2 Allergy status to sulfonamides; Z79.4 Long term (current) use of insulin; Z79.899 Other long term (current) drug therapy; W22.8XXA Striking against or struck by other objects, initial encounter; Y93.89 Activity, other specified; Y92.89 Other specified places as the place of occurrence of the external cause; Y99.8 Other external cause status
CPT/HCPCS: 36415; 80053; 82948; 85025; 93971; 96365; 96375; 99284; J2543

== ENCOUNTER 2020-10-17 15:49 | Emergency (ER) | payer MEDICAID ==
[~2020-10-17] VITALS: Ht 175.3 cm; Wt 65.5 kg
[~2020-10-17 15:49] MED LIST changes: +CLIN-97 PO; +ESCI-8 PO; -ESCI10TA61 PO; -LISI-604 PO; +LISI-790 PO
[2020-10-17 15:58] VITALS: BP 130/92
== END 2020-10-17 17:55 | disposition home or self-care (01) ==
LOC: ER 15:50
DX: S80.00XA Contusion of unspecified knee, initial encounter (principal); S80.219A Abrasion, unspecified knee, initial encounter; E11.9 Type 2 diabetes mellitus without complications; E03.9 Hypothyroidism, unspecified; F32.9 Major depressive disorder, single episode, unspecified; F17.200 Nicotine dependence, unspecified, uncomplicated; Z98.890 Other specified postprocedural states; Z88.2 Allergy status to sulfonamides; Z79.2 Long term (current) use of antibiotics; Z79.4 Long term (current) use of insulin; Z79.899 Other long term (current) drug therapy; Y08.89XA Assault by other specified means, initial encounter; Y93.89 Activity, other specified; Y92.89 Other specified places as the place of occurrence of the external cause; Y99.8 Other external cause status
CPT/HCPCS: 71045; 99283

== ENCOUNTER 2022-06-28 18:09 | Inpatient (IN) | payer MEDICAID, OTHER ==
[~2022-06-28] VITALS: Ht 175.3 cm; Wt 77.3 kg
[~2022-06-28 18:09] MED LIST changes: -LISI-790 PO; +LISI5TAB22 PO
[2022-06-28 18:41] VITALS: BP 130/89
[2022-06-28] MEDS ORDERED: piperacillin/tazo 3.375gm/50ml 50 ML IV ONE (18:45)
[2022-06-28 19:16] LABS: BASOPHILS # (AUTO) 0.2 X10'3 (0-0.2); BASOPHILS % (AUTO) 1.6 % (0-1); EOSINOPHILS # (AUTO) 0.6 X10'3 (0-0.9); EOSINOPHILS % (AUTO) 4.8 % (0-6); HEMATOCRIT 37.4 % (42.0-52.0); HEMOGLOBIN 12.3 g/dl (14.0-17.9); LYMPHOCYTES # (AUTO) 2.2 X10'3 (1.1-4.8); LYMPHOCYTES % (AUTO) 17.1 % (21-51); MEAN CORPUSCULAR HEMOGLOBIN 30.8 PG (27.0-31.0); MEAN CORPUSCULAR VOLUME 93.4 FL (78-98); MEAN PLATELET VOLUME 9.9 FL (7.4-10.4); MONOCYTES % (AUTO) 7.9 % (2-12); NEUTROPHILS # (AUTO) 8.9 X10'3 (1.8-7.7); NEUTROPHILS % (AUTO) 68.6 % (42-75); PLATELET COUNT 253 X10'3 (140-440); RED BLOOD COUNT 4.01 X10'6 (4.70-6.10); RED CELL DISTRIBUTION WIDTH 13.6 % (11.5-14.5)
[2022-06-28 19:27] LABS: ALANINE AMINOTRANSFERASE 50 U/L (12-78); ALBUMIN 3.6 G/DL (3.4-5.0); ALBUMIN/GLOBULIN RATIO 0.8 (1.1-1.5); ALKALINE PHOSPHATASE 102 IU/L (46-116); ANION GAP 6 (8-16); ASPARTATE AMINO TRANSFERASE 67 U/L (10-37); BILIRUBIN,TOTAL 0.2 MG/DL (0.1-1.0); BLOOD UREA NITROGEN 24 MG/DL (7-18); BUN/CREATININE RATIO 18.5 (10.0-20.0); CALCIUM 8.9 MG/DL (8.5-10.1); CHLORIDE 99 MMOL/L (99-107); GLUCOSE 308 MG/DL (70-104); MAGNESIUM 2.2 MG/DL (1.5-2.4); POTASSIUM 4.3 MMOL/L (3.5-5.1); SODIUM 135 MMOL/L (135-145); eGFR 64 ML/MIN
[2022-06-28 20:12] LABS: TOTAL CELLS COUNTED 100
[2022-06-28 20:13] LABS: HYPERSEGMENTED NEUTROPHILS 1+; LARGE PLATELETS FEW; PLATELET ESTIMATE NORMAL; TOXIC VACUOLATION FEW
[2022-06-28] MEDS ORDERED: temazepam 15mg capsule PO PRN (21:00)
[2022-06-28] MEDS ORDERED: magnesium hydroxide 30ml (MOM) UD suspension PO PRN (21:10)
[2022-06-28] MEDS ORDERED: mag hydrox/Alum hydrox/simeth 30ml oral suspension PO PRN (21:10)
[2022-06-28] MEDS ORDERED: acetaminophen 325mg tablet PO PRN (21:10)
[2022-06-28] MEDS ORDERED: HYDROcodone/acetaminophen 10/325mg tab PO PRN (21:10)
[2022-06-28] MEDS ORDERED: morphine 2 MG/ML inj. syringe IV PRN ×2 (21:10)
[2022-06-28] MEDS ORDERED: ondansetron/PF 4mg/2ml inj IV PRN (21:10)
[2022-06-28] MEDS ORDERED: diphenhydrAMINE 25mg capsule PO PRN (21:10)
[2022-06-28] MEDS ORDERED: diphenhydrAMINE 50 mg/ml inj IV PRN (21:10)
[2022-06-28] MEDS ORDERED: bisacodyl 10mg suppository rectal RC PRN (21:10)
[2022-06-28] MEDS ORDERED: HYDROmorphone inj. 0.5 MG/0.5 ML DISP.SYRIN IV PRN (21:10)
[2022-06-28] MEDS ORDERED: normal saline 1000ml 1,000 ML IV SCH (21:10)
[2022-06-28] MEDS ORDERED: acetaminophen 650mg rectal suppository RC PRN (21:10)
[2022-06-28] MEDS ORDERED: metoclopramide 5 mg/ml inj IV PRN (21:10)
[2022-06-28] MEDS ORDERED: HYDROcodone/acetaminophen 5mg/325mg tablet PO PRN (21:10)
[2022-06-28] MEDS ORDERED: ondansetron 4mg rapidly disintigrating tab PO PRN (21:10)
[2022-06-28 21:31] LABS: HEMOGLOBIN A1C 6.9 % (4.5-6.2)
[2022-06-28 21:35] LABS: PHOSPHORUS 3.6 MG/DL (2.3-4.5)
[2022-06-28] MEDS ORDERED: glucagon, human recombinant 1mg kit SUBCUT PRN (22:00)
[2022-06-28] MEDS ORDERED: MESSAGE TO PHARMACY PO ONE (22:00)
[2022-06-28] MEDS ORDERED: dextrose 50%-water 50ml dispensing syringe IV PRN ×2 (22:00)
[2022-06-28] MEDS ORDERED: insulin Lispro (HumaLOG) vial - multi-dose SQ SCH (22:00)
[2022-06-28] MEDS ORDERED: DEXTROSE 15 GM of carb/4 tabs (each vial/BOTTLE has 4 tablets) PO PRN ×2 (22:00)
[2022-06-28] MEDS ORDERED: vancomycin/NS 1 GM ADD-VANTAGE 250 ML IV SCH (22:00)
[2022-06-28 22:12] LABS: APTT 29 SECONDS (22-32)
--- NOTE | 2022-06-28 22:40 | NUR ---
received patient report and patient up to room via w/c. introduced myself to patient and offered pain medications. patient stated that he cannot take opioids. He also stated that he did not know that he was being admitted. He wanted me to call the MD and ask for oral abx to take home, as he did not plan to stay. MD was called and told me to explain to patient that "he could lose his arm and that he is not out of the [place] yet". Educated patient on importance of IV abx therapy, he still wanted to go home. Filled out AMA paper and removed patients PIV and arm bands. patient ambulated to elevator and left AMA Addendum: 06/28/22 at 0348 by Libia Carrillo RN I also explained to him that he should get to a walk in clinic [facility] to get oral abx.
[2022-06-29] MEDS ORDERED: piperacillin/tazo 3.375gm/50ml 50 ML IV SCH (02:00)
[2022-06-29] MEDS ORDERED: pantoprazole 40mg Tablet.DR PO SCH (07:30)
[2022-06-29] MEDS ORDERED: docusate sod 100mg capsule PO SCH (08:00)
[2022-06-29] MEDS ORDERED: heparin, porcine 5000 units/ml vial SQ SCH (08:00)
[2022-06-29] MEDS ORDERED: insulin glargine (Lantus) pen - multi-dose SQ SCH (21:00)
== END 2022-06-28 22:30 | disposition left against medical advice (07) | DRG 383 ==
LOC: ER 19:47 → ED HOLD 21:12 → ORTHO 4S 22:10
PROVIDERS: ADMIT Family Medicine; ATTEND Family Medicine
DX: L03.114 Cellulitis of left upper limb (principal); N17.9 Acute kidney failure, unspecified; D64.9 Anemia, unspecified; E03.9 Hypothyroidism, unspecified; E10.65 Type 1 diabetes mellitus with hyperglycemia; E10.22 Type 1 diabetes mellitus with diabetic chronic kidney disease; N18.9 Chronic kidney disease, unspecified; I12.9 Hypertensive chronic kidney disease with stage 1 through stage 4 chronic kidney disease, or unspecified chronic kidney disease; F31.9 Bipolar disorder, unspecified; G89.4 Chronic pain syndrome; J45.909 Unspecified asthma, uncomplicated; Z53.29 Procedure and treatment not carried out because of patient's decision for other reasons; Z87.891 Personal history of nicotine dependence; Z88.2 Allergy status to sulfonamides; Z79.899 Other long term (current) drug therapy; Z79.4 Long term (current) use of insulin
CPT/HCPCS: 36415; 80053; 83036; 83605; 83735; 83880; 84100; 84145; 84443; 85007; 85025; 85610; 85730; 87040; G0378; J2543; J7030

== ENCOUNTER 2023-05-17 08:34 | Emergency (ER) | payer MEDICAID, OTHER, SELFPAY ==
[~2023-05-17] VITALS: Ht 175.3 cm; Wt 74.7 kg
[~2023-05-17 08:34] MED LIST changes: -ARIP5TAB49 PO; -CLIN-97 PO; -ESCI-8 PO; -KETO10TA2 PO; -LISI5TAB22 PO; -TRAZ-251
[2023-05-17 09:38] VITALS: BP 157/94; PULSE 84; RESP 15; TEMP 98.6; O2SAT 100
[2023-05-17] MEDS ORDERED: BUPR1FIL3 SL ×2 (10:05→10:11)
[2023-05-17] MEDS ORDERED: INSU100V64 SQ (10:06)
== END 2023-05-17 10:22 | disposition home or self-care (01) ==
LOC: ER 08:35
DX: E10.9 Type 1 diabetes mellitus without complications (principal); E03.9 Hypothyroidism, unspecified; F32.A Depression, unspecified; Z88.2 Allergy status to sulfonamides; Z79.899 Other long term (current) drug therapy; Z79.4 Long term (current) use of insulin; Z76.0 Encounter for issue of repeat prescription
CPT/HCPCS: 99281; 99283